=== PATIENT | female | born 2000 | race Caucasian/White ===

== ENCOUNTER 2019-03-19 12:48 | Emergency (ER) | payer BC ==
[2019-03-19 13:15] VITALS: BP 103/69
--- NOTE | 2019-03-19 13:21 | UC ---
Skin Complaint HPI - HPI Summary HPI Summary: Pt has dry cracked lips for about one week. She has been applying Abreva to the areas and this morning awakened with pustules on upper lip and just below right side of lower lip. Pt thought this was a cold sore. - History of Current Complaint Chief Complaint: [place] Time Seen by Provider: 03/19/19 13:13 Stated Complaint: COLD SORE ON LIP Hx Obtained From: Patient Hx Last Menstrual Period: 03/11/19 ?: No Onset/Duration: Gradual Onset Skin Exposure Onset/Duration: Days Ago Timing: Constant Onset Severity: Mild Current Severity: Mild Pain Intensity: 2 Location: Face Character: Swelling - Minimal swelling., Pruritus, Redness, Raised Alleviating Factor(s): Nothing - Has been applying Abreva Associated Signs & Symptoms: Positive: Rash - Allergy/Home Medications Allergies/Adverse Reactions: Allergies Allergy/AdvReac Type Severity Reaction Status Date / Time No Known Allergies Allergy Verified 03/19/19 13:15 Home Medications: Home Medications Norethindrone AC-Eth Estradiol [Loestrin 21 1-20 Tablet] 1 tab PO DAILY [History Confirmed 03/19/19] Vit B12/Intrinsic Fact/Folate [Intrinsi G07-Fphxut Tablet] 1 tab PO DAILY [History Confirmed 03/19/19] PMH/Surg Hx/FS Hx/Imm Hx Previously Healthy: Yes - Surgical History Surgical History: Yes Surgery Procedure, Year, and Place: wisdom teeth - Family History Known Family History: Positive: Non-Contributory - Social History Occupation: Student Lives: Dormitory/Roommates Alcohol Use: Occasionally Substance Use Type: None Smoking Status (MU): Never Smoked Tobacco Review of Systems All Other Systems Reviewed And Are Negative: Yes Skin: Positive: Rash - Dry skin upper lip for one week then today with rash and pustules Is Patient Immunocompromised?: No Physical Exam Triage Information Reviewed: Yes Appearance: Well-Appearing, No Pain Distress, Well-Nourished Vital Signs: Initial Vital Signs Temp 97.8 F 03/19/19 13:12 Pulse 99 03/19/19 13:12 Resp 17 03/19/19 13:12 BP 103/69 03/19/19 13:12 Pulse Ox 100 03/19/19 13:12 Vital Signs Reviewed: Yes Eyes: Positive: Conjunctiva Clear Neck: Positive: Supple, Nontender, No Lymphadenopathy Skin: Positive: Rashes - Honey-colored crusty rash to upper lip and area below right lower lip with papules and mild erythema Course/Dx - Course Course Of Treatment: Pt comfortable here. I do not visualize any cold sore formation. I think this is impetigo related to the dry skin for a week and now a secondary skin infection. - Diagnoses Provider Diagnosis: Impetigo Discharge ED - Sign-Out/Discharge Documenting (check all that apply): Patient Departure All imaging exams completed and their final reports reviewed: No Studies - Discharge Plan Condition: Good Disposition: HOME Prescriptions: Cephalexin CAP* [Keflex 500 CAP*] 500 mg PO TID 10 Days #30 cap Mupirocin 2% OINT* [Bactroban 2 % Oint*] 1 applic TOPICAL TID 7 Days #1 tube Patient Education Materials: Impetigo (DC) Referrals: [facility] [Primary Care Provider] - Additional Instructions: Good handwashing, Follow up at [facility] if no improvement in 4- 5 days. No vbje-yr-aara contact until completely cleared.. - Billing Disposition and Condition Condition: GOOD Disposition: Home
== END 2019-03-19 13:30 | disposition home or self-care (01) ==
LOC: UCEAST 12:48 → MERGE 12:48 → UCEAST 13:30
DX: L01.00 Impetigo, unspecified (principal)
CPT/HCPCS: 99202; G0463